=== PATIENT | female | born 1970 | race Caucasian/White ===

== ENCOUNTER 2017-06-16 10:41 | Emergency (ER) | payer OTHER ==
[~2017-06-16] VITALS: Ht 165.1 cm; Wt 77.2 kg
[~2017-06-16 10:41] MED LIST: ALLEGRA ALLERG180 MG PO; ALPRAZOLAM0.25 M2 PO; ASPIR-LOW81 MG PO; BACTRIM,SEPT1 TABLET PO; ESCITALOPRAM OX20 MG PO; ESTRACE1 MG PO; FIORICET 50-301 EACH PO; FIORICET,ESG1 TABLET PO; FLONASE16 G1 BOTH NARES; GABAPENTIN300 MG PO; LEXAPRO20 MG PO; MELATONIN3 MG PO; MOTRIN400 MG PO; NASACORT AQ16.5 GM NS; PREMARIN0.625 MG PO; PRISTIQ50 MG PO; SIMVASTATIN40 M1 PO; SIMVASTATIN40 MG PO; SYMBASTATIN; VALACYCLOVIR500 MG PO; VALTREX50 MG/ML PO; VENTOLIN HFA18 GM IH; XANAX0.5 MG PO; ZOFRAN4 MG PO; [UNRECOGNIZED DRUG - OTHER]; [UNRECOGNIZED DRUG - OTHER] IH; allegra; premarin; topamax; valtrex
[2017-06-16 11:05] LABS: HEMATOCRIT 37.2 % (36.0-46.0); HEMOGLOBIN 12.7 G/DL (11.9-15.5); MCH 29.2 PG (29.0-34.0); MCHC 34.1 G/DL (30.0-36.0); MCV 85.5 FL (83-99); PLATELET COUNT 264 K/uL (156-360); RBC DIS.WIDTH-CV 12.3 % (11.8-14.6); RBC DIS.WIDTH-SD 38.1 % (39-53); RED BLOOD COUNT 4.35 M/uL (3.80-5.20); WHITE BLOOD COUNT 7.5 K/uL (4.1-10.2)
[2017-06-16 11:14] LABS: CHLORIDE 101 mEq/L (99-109); POTASSIUM 3.7 mEq/L (3.7-5.4); SODIUM 136 mEq/L (136-147)
[2017-06-16 11:15] LABS: GLUCOSE 106 mg/dL (70-99)
[2017-06-16 11:19] LABS: CREATININE 0.8 mg/dL (0.6-1.3); GFR ESTIMATE (CALCULATED) > 59 mL/min/
[2017-06-16 11:20] LABS: UREA NITROGEN (BUN) 8 mg/dL (9-23)
[2017-06-16 11:43] LABS: ALBUMIN 4.5 g/dL (3.2-4.8)
[2017-06-16 11:47] LABS: TOTAL BILIRUBIN 0.2 mg/dL (0.0-1.0)
[2017-06-16 11:48] LABS: ALKALINE PHOSPHATASE 80 IU/L (3-129)
[2017-06-16 11:51] LABS: ALT (GPT) 19 IU/L (3-49); AST (GOT) 22 IU/L (2-34); DIRECT BILIRUBIN 0.1 mg/dL (0.0-0.3)
[2017-06-16 11:52] LABS: LIPASE 22 U/L (1.0-51.0)
[2017-06-16 13:30] LABS: APPEARANCE CLEAR ((CLEAR)); BILIRUBIN NEGATIVE; BLOOD NEGATIVE; COLOR YELLOW ((YELLOW)); GLUCOSE (STRIP) NEGATIVE; KETONES 20; LEUKOCYTES NEGATIVE; NITRITE NEGATIVE; PROTEIN (STRIP) NEGATIVE; SPECIFIC GRAVITY 1.016 (1.000-1.030); UCUL ADDED? NO; UROBILINOGEN 0.2 MG/DL (0.2-1.0)
[2017-06-16] MEDS ORDERED: ZOFRAN ODT4 MG PO (13:48)
[2017-06-16 14:04] VITALS: BP 161/85
== END 2017-06-16 14:21 | disposition home or self-care (01) ==
LOC: EME 10:41
PROVIDERS: Emergency Medicine
DX: J10.1 Influenza due to other identified influenza virus with other respiratory manifestations (principal); J45.909 Unspecified asthma, uncomplicated; E78.5 Hyperlipidemia, unspecified; Z72.0 Tobacco use; Z86.73 Personal history of transient ischemic attack (TIA), and cerebral infarction without residual deficits; Z87.442 Personal history of urinary calculi; Z90.710 Acquired absence of both cervix and uterus
CPT/HCPCS: 71046; 80048; 80076; 81003; 83690; 85027; 87502; 99281; 99284; J1885; J2405; J7030